=== PATIENT | male | born 1955 | race Caucasian/White ===

== ENCOUNTER 2017-05-22 20:37 | Emergency (ER) | payer MEDICAID ==
[~2017-05-22] VITALS: Ht 170.2 cm; Wt 65.0 kg
[2017-05-22 20:41] VITALS: BP 156/72
== END 2017-05-22 21:58 | disposition left against medical advice (07) ==
LOC: ER 20:37
DX: R10.9 Unspecified abdominal pain (principal); Z53.21 Procedure and treatment not carried out due to patient leaving prior to being seen by health care provider